=== PATIENT | male | born 1980 | race Two or more races ===

== ENCOUNTER 2024-01-21 20:07 | Emergency (ER) | payer SELFPAY ==
[~2024-01-21] VITALS: Ht 182.9 cm; Wt 91.0 kg
[2024-01-21 20:09] VITALS: BP 144/70; PULSE 78; RESP 18; O2SAT 98
[2024-01-21] MEDS ORDERED: AMOXICILLIN/POTASSIUM CLAVULANATE 875/125MG TAB PO ONE (22:30)
[2024-01-21] MEDS ORDERED: TETANUS, DIPHTHERIA, PERTUSSIS VAC/PF 0.5ML (>10YR OLD) IM ONE (22:30)
[2024-01-21 23:00] LABS: DIFFERENTIAL COMMENT 1; HEMATOCRIT. 40.6 % (42.0-52.0); HEMOGLOBIN. 13.5 g/dL (14.0-18.0); MEAN CORPUSCULAR HEMOGLOBIN 32.5 pg (28.0-32.0); MEAN CORPUSCULAR HGB CONC 33.2 g/dL (31.0-37.0); MEAN PLATELET VOLUME 7.6 fl (7.4-10.4); PLATELET 215 x1000/uL (130-400); RED BLOOD CELL COUNT 4.15 mill/uL (4.7-6.1); WHITE BLOOD COUNT 16.6 x1000/uL (4.5-11.0)
[2024-01-21 23:05] LABS: CHLORIDE 106 mEq/L (98-107); SODIUM 139 mEq/L (136-145)
[2024-01-21 23:07] LABS: CALCIUM 9.1 mg/dL (8.7-10.4); CARBON DIOXIDE 25 mEq/L (21-32)
[2024-01-21 23:08] LABS: PROTHROMBIN TIME 10.8 sec (9.6-11.0)
[2024-01-21 23:12] LABS: CREATININE 1.1 mg/dL (0.6-1.3); GLUCOSE 92 mg/dL (70-105); UREA NITROGEN BLOOD 14 mg/dL (9-23)
[2024-01-21 23:13] LABS: ETHANOL BLOOD < 10 mg/dL (<10)
[2024-01-21 23:14] LABS: ALANINE AMINOTRANSFERASE 18 IU/L (10-49); ALBUMIN 4.3 g/dL (3.2-4.8); ASPARTATE AMINOTRANSFERASE 34 IU/L (<34); BILIRUBIN DIRECT 0.2 mg/dL (<=3.0); BILIRUBIN TOTAL 0.8 mg/dL (0.1-1.0); PROTEIN TOTAL 7.1 g/dL (6.0-8.3)
[2024-01-21 23:33] LABS: PLATELET ESTIMATE NORMAL
[2024-01-22] MEDS: POTASSIUM CHLORIDE 20MEQ TABLET SR PO ONE (02:09)
[2024-01-22 02:10] VITALS: TEMP 98.4
[2024-01-22] MEDS: TETANUS, DIPHTHERIA, PERTUSSIS VAC/PF 0.5ML (>10YR OLD) IM ONE (02:10)
[2024-01-22] MEDS: ACETAMINOPHEN 325MG TABLET PO ONE (02:10)
[2024-01-22] MEDS: AMOXICILLIN/POTASSIUM CLAVULANATE 875/125MG TAB PO NR (02:11)
[2024-01-22] MEDS ORDERED: TOPUD PO (03:24)
[2024-01-22] MEDS ORDERED: IBUP-2028 MT (03:24)
[2024-01-22] MEDS ORDERED: IOHEXOL-300 100 ML BOTTLE ONE (08:02)
== END 2024-01-22 05:42 | disposition home or self-care (01) ==
LOC: ER 20:07
DX: S50.811A Abrasion of right forearm, initial encounter (principal); R51.9 Headache, unspecified; Y04.0XXA Assault by unarmed brawl or fight, initial encounter; Y93.89 Activity, other specified; Y92.89 Other specified places as the place of occurrence of the external cause; Y99.8 Other external cause status
CPT/HCPCS: 80076; 80048; 80320; 85025; 85610; 36415; 71045; 73090; 70450; 70486; 74177; 99285; 90715; 90471; Q9967; Z7610; G0480